=== PATIENT | female | born 1980 | race Caucasian/White ===

== ENCOUNTER 2016-08-06 17:15 | Emergency (ER) | payer BC ==
[2016-08-06 19:34] VITALS: BP 130/89
--- NOTE | 2016-08-06 19:43 | UC ---
UC General HPI - HPI Summary HPI Summary: complaint left rib cage pain that started approx 1 week ago was getting out of the shower and started having pain after she stood up from bending over since then having intermittent pain then for the last 4 days the pain has been constant- denies trauma can't sleep at night d/t pain hard to sit in a chair at work, worse with movement hurts to take a deep breath denies shortness of breath, dizziness, chest pain, diaphoresis nausea took some ibuprofen without relief hx of gastric bypass - History of Current Complaint Chief Complaint: UCGeneralIllness Stated Complaint: RIGHT RIB PAIN Time Seen by Provider: 08/06/16 19:37 Hx Obtained From: Patient - Allergy/Home Medications Allergies/Adverse Reactions: Allergies Allergy/AdvReac Type Severity Reaction Status Date / Time Bupropion [From Wellbutrin] Allergy Anxiety Verified 08/06/16 19:37 Nickel Allergy RASH, SKIN Verified 08/06/16 19:37 BLEEDS ibuprofen AdvReac Unknown d/t Uncoded 08/06/16 19:37 gastric bypass Home Medications: Home Medications Acetaminophen [Extra Strength Acetaminop] 1,000 mg PO ONCE 08/06/16 [History Confirmed 08/06/16] Ibuprofen TAB* [Advil TAB*] 200 mg PO ONCE 08/06/16 [History Confirmed 08/06/16] PMH/Surg Hx/FS Hx/Imm Hx Previously Healthy: Yes Endocrine History Of: Reports: Thyroid Disease - THYROIDECTOMY Psychological History Of: Reports: Depression - ON MEDS - Surgical History Surgical History: Yes Surgery Procedure, Year, and Place: 05/2010 / 08/2010 THYROIDECTOMY, [facility]. 2011 LAPAROSCOPIC CHOLECYSTECTOMY, [place]. 2013 LAPAROSCOPIC GASTRIC BYPASS, [facility]. 2014 DILATION AND CURETTAGE, [facility] [place] - Family History Known Family History: Negative: Cardiac Disease, Hypertension, Diabetes - Social History Occupation: Employed Full-time Lives: With Family Alcohol Use: Occasionally Substance Use Type: None Smoking Status (MU): Former Smoker Type: Cigarettes Amount Used/How Often: 1/2 PPD Length of Time of Smoking/Using Tobacco: 5 YEARS Have You Smoked in the Last Year: No When Did the Patient Quit Smoking/Using Tobacco: 2004 - Immunization History Most Recent Influenza Vaccination: [id number] Review of Systems Constitutional: Negative Skin: Negative Eyes: Negative ENT: Negative Respiratory: Negative Cardiovascular: Negative Gastrointestinal: Negative Genitourinary: Negative Motor: Negative Neurovascular: Negative Musculoskeletal: Other: - left chest wall pain Neurological: Negative Psychological: Negative All Other Systems Reviewed And Are Negative: Yes Physical Exam Triage Information Reviewed: Yes Appearance: No Pain Distress, Well-Nourished Vital Signs: Initial Vital Signs Temp 98.7 F 08/06/16 19:28 Pulse 82 08/06/16 19:28 Resp 16 08/06/16 19:28 BP 130/89 08/06/16 19:28 Pulse Ox 100 08/06/16 19:28 Vital Signs Reviewed: Yes Eyes: Positive: Conjunctiva Clear ENT: Positive: Pharynx normal, TMs normal. Negative: Nasal congestion, Tonsillar swelling, Tonsillar exudate Neck: Positive: No Lymphadenopathy Respiratory: Positive: Lungs clear, Normal breath sounds, No respiratory distress Cardiovascular: Positive: RRR, No Murmur, Pulses Normal Abdomen Description: Positive: Nontender, Soft Bowel Sounds: Positive: Present Musculoskeletal: Positive: Other: - left chest wall tenderness over 6th,7th 8th ribs abd where they meet, no bruising , edema or ecchymosis Neurological: Positive: Alert Psychological Exam: Normal Skin Exam: Normal Course/Dx - Course Course Of Treatment: exam completed. chest x-ray shows no rib fracture- lungs appear overinflated COPD,rective airway -pt asymptomatic - Differential Dx - Multi-Symptom Differential Diagnoses: Other - rib fracture,,costochondritis, muscle strain Provider Diagnoses: costochondritis, muscle strain Discharge - Discharge Plan Condition: Stable Disposition: HOME Prescriptions: Metaxalone TAB* [Skelaxin TAB*] 800 mg PO BEDTIME #5 tab Patient Education Materials: Costochondritis (ED), Muscle Strain (ED) Referrals: Helen John MD [Primary Care Provider] - Additional Instructions: Start skelaxin as directed. Do not drink alcohol or drive while taking skelaxin. Take acetaminophen for pain. Increase fluids and rest. Please review your discharge instructions. If your symptoms do not improve please call your primary care provider or return to urgent care.
--- NOTE | 2016-08-06 20:10 | RAD ---
HISTORY: Left chest wall pain COMPARISONS: None VIEWS: 2: Frontal dual-energy and lateral views of the chest. FINDINGS: CARDIOMEDIASTINAL SILHOUETTE: The cardiomediastinal silhouette is normal. GURVINDER: The gurvinder are normal. PLEURA: The costophrenic angles are sharp. No pleural abnormalities are noted. LUNG PARENCHYMA: Calcified granulomas are noted bilaterally. ABDOMEN: The upper abdomen is clear. There is no subphrenic gas. BONES AND SOFT TISSUES: No bone or soft tissue abnormalities are noted. OTHER: None. IMPRESSION: HYPERINFLATION WHICH CAN BE SEEN WITH COPD OR REACTIVE AIRWAY DISEASE. NO ACTIVE CARDIOPULMONARY DISEASE.
== END 2016-08-06 20:30 | disposition home or self-care (01) ==
LOC: UCCORT 17:15
DX: M94.0 Chondrocostal junction syndrome [Tietze] (principal); S29.011A Strain of muscle and tendon of front wall of thorax, initial encounter; X58.XXXA Exposure to other specified factors, initial encounter; Y93.9 Activity, unspecified; Y92.9 Unspecified place or not applicable; Z98.84 Bariatric surgery status; Z90.49 Acquired absence of other specified parts of digestive tract; Z88.6 Allergy status to analgesic agent; Z88.8 Allergy status to other drugs, medicaments and biological substances; Z87.891 Personal history of nicotine dependence
CPT/HCPCS: 71020; 99212; G0463

== ENCOUNTER 2019-03-29 15:25 | Emergency (ER) | payer BC, OTHER ==
--- OUTSIDE RECORDS SUMMARY | 2019-03-29 15:44 | XMS REPORT | Summary of Care ---
:1980 Author Organization [facility] Address [address] [facility] [place] [address] Care Team Providers Name Role Phone Helen John MD Primary Care Provider Reason for Visit Reason Comments Blood Pressure pt states high bp for a few months Encounter Details Date Type Department Care Team Description 02/21/2019 Office Visit [facility] Kerrie Gasca, Other specified hypothyroidism (Primary Dx); Practice [employer] Other depression; [address] [place] [address] [place] [address] [phone] Allergies Active Allergy Reactions Severity Noted Date Comments Bupropion Hcl Other 02/11/2012 Made pt feel weird. documented as of this encounter (statuses as of 02/21/2019) Medications Medication Sig Dispensed Refills Start Date End Date Status cyanocobalamin Take 500 mcg 0 Active (B-12) 500 MCG Oral by mouth Tab DAILY. Multiple Vitamin Take by 0 Active (MULTI-VITAMINS PO) mouth TWICE DAILY. Ferrous Sulfate Take 2 Tabs 0 Active (IRON) 325 (65 FE) by mouth. MG Oral Tab ALPRAZolam (XANAX) Take 1 Tab by 20 Tab 0 08/23/2017 Active 0.25 MG Oral mouth THREE TabIndications: TIMES DAILY Anxiety NEEDED for anxiety. Max Daily Amount: 0.75 mg. acyclovir (ZOVIRAX) Take 1 Tab by 15 Tab 1 09/06/2018 Active 400 MG Oral Tab mouth THREE TIMES DAILY NEEDED (cold sores). Start the first day of cold sore and continue for five days ergocalciferol Take 1 Cap by 4 Cap 5 09/14/2018 Active (DRISDOL, mouth EVERY 7 CALCIFEROL, VITAMIN DAYS. D) 66846 units Oral Cap venlafaxine Take 1 Cap by 90 Cap 1 02/21/2019 Active (EFFEXOR XR) 75 MG mouth DAILY. Oral CAPSULE SR 24 Part of 225 HRIndications: mg PO QD dose Other depression venlafaxine Take 1 Cap by 90 Cap 1 02/21/2019 Active (EFFEXOR XR) 150 MG mouth EVERY Oral CAPSULE SR 24 TWENTY-FOUR HRIndications: HOURS. Part Other depression of 225 mg PO QD dose levothyroxine Take 1 Tab by 30 Tab 2 02/21/2019 Active (SYNTHROID) 150 MCG mouth BEFORE Oral BREAKFAST. TabIndications: Other specified hypothyroidism venlafaxine Take 1 Cap by 90 Cap 1 09/21/2018 Discontinued (EFFEXOR XR) 150 MG mouth EVERY 9 (Reorder) Oral CAPSULE SR 24 TWENTY-FOUR HRIndications: HOURS. Part Other depression of 225 mg PO QD dose venlafaxine Take 1 Cap by 90 Cap 1 09/21/2018 Discontinued (EFFEXOR XR) 75 MG mouth DAILY. 9 (Reorder) Oral CAPSULE SR 24 Part of 225 HRIndications: mg PO QD dose Other depression levothyroxine Take 1 Tab by 30 Tab 2 12/01/2018 Discontinued (SYNTHROID) 150 MCG mouth BEFORE 9 (Reorder) Oral Tab BREAKFAST. documented as of this encounter (statuses as of 02/21/2019) Active Problems Problem Noted Date S/P gastric bypass 02/11/2015 BMI 45.0-49.9, adult 03/09/2013 Hyperlipidemia 10/13/2012 Vitamin D deficiency 10/13/2012 Depression 12/14/2011 Anxiety 09/08/2011 Hypothyroidism Overview: multinodular goiter, thyroidectomy documented as of this encounter (statuses as of 02/21/2019) Resolved Problems Problem Noted Date Resolved Date Symptomatic cholelithiasis 05/29/2011 09/08/2011 Cholelithiasis 05/06/2011 09/08/2011 documented as of this encounter (statuses as of 02/21/2019) Immunizations Name Administration Dates Next Due Influenza (IM) Preservative Free 04/14/2018, 03/25/2012 Influenza (IM) W/Pres 04/14/2017 TDAP Vaccine 12/04/2013 Toradol (60 mg) 12/21/2011 documented as of this encounter Social History Tobacco Use Types Packs/Day Years Used Date Former Smoker Smokeless Tobacco: Never Used Comments: quit in 2004 Alcohol Use Drinks/Week oz/Week Comments Yes Sex Assigned at Date Recorded Not on file Job Start Date Occupation Industry Not on file Not on file Not on file Travel History Travel Start Travel End No recent travel history available. documented as of this encounter Last Filed Vital Signs Vital Sign Reading Time Taken Comments Blood Pressure 130/84 02/21/2019 9:45 AM EDT Pulse 95 02/21/2019 9:45 AM EDT Temperature 37.4 02/21/2019 9:45 AM EDT C (99.4 F) Respiratory Rate - - Oxygen Saturation 99% 02/21/2019 9:45 AM EDT Inhaled Oxygen Concentration - - Weight 97.1 kg (214 lb) 02/21/2019 9:45 AM EDT Height 167.6 cm (5' 6") 02/21/2019 9:45 AM EDT Body Mass Index 34.54 02/21/2019 9:45 AM EDT documented in this encounter Patient Instructions Patient InstructionsKerrie Gasca FNP - 02/21/2019 9:40 AM EDTLabs today Follow up as needed documented in this encounter Progress Notes Kerrie Gasca FNP - 02/21/2019 9:40 AM EDT PATIENT: Marlee Moore : 1980 DATE OF SERVICE: 02/21/2019 CHIEF COMPLAINT: Chief Complaint Patient presents with Blood Pressure pt states high bp for a few months Subjective HISTORY OF PRESENT ILLNESS: Marlee Moore is a 38-y.o. female. HPI Here for follow up - needs labs and med refills/ Last labs in July - TSH &gt ;300, anemia on CBC.Pt states had been out of tyroid med for awhile prior to that. Feels well today Past Medical History: Diagnosis Date Cholelithiasis laparoscopic cholecystectomy 06/03/2011 Depression 12/14/2011 Hypothyroidism multinodular goiter, thyroidectomy Family History Problem Relation Age of Onset Hypertension Mother High Cholesterol Mother Heart Father PVC Stroke Unknown GF Heart Unknown GF Current Outpatient Medications Medication Sig acyclovir (ZOVIRAX) 400 MG Oral Tab Take 1 Tab by mouth THREE TIMES DAILY NEEDED (cold sores). Start the first day of cold sore and continue for five days ALPRAZolam (XANAX) 0.25 MG Oral Tab Take 1 Tab by mouth THREE TIMES DAILY NEEDED for anxiety. Max Daily Amount: 0.75 mg. cyanocobalamin (B-12) 500 MCG Oral Tab Take 500 mcg by mouth DAILY. ergocalciferol (DRISDOL, CALCIFEROL, VITAMIN D) 57213 units Oral Cap Take 1 Cap by mouth EVERY 7 DAYS. Ferrous Sulfate (IRON) 325 (65 FE) MG Oral Tab Take 2 Tabs by mouth. levothyroxine (SYNTHROID) 150 MCG Oral Tab Take 1 Tab by mouth BEFORE BREAKFAST. Multiple Vitamin (MULTI-VITAMINS PO) Take by mouth TWICE DAILY. venlafaxine (EFFEXOR XR) 150 MG Oral CAPSULE SR 24 HR Take 1 Cap by mouth EVERY TWENTY-FOUR HOURS. Part of 225 mg PO QD dose venlafaxine (EFFEXOR XR) 75 MG Oral CAPSULE SR 24 HR Take 1 Cap by mouth DAILY. Part of 225 mg PO QD dose No current facility-administered medications for this visit. Allergies Allergen Reactions Wellbutrin [Bupropion Hcl] Other Made pt feel weird. Social History Socioeconomic History Marital status: Spouse name: Not on file Number of children: Not on file Years of education: Not on file Highest education level: Not on file Occupational History Not on file Social Needs Financial resource strain: Not on file Food insecurity: Worry: Not on file Inability: Not on file Transportation needs: Medical: Not on file Non-medical: Not on file Tobacco Use Smoking status: Former Smoker Smokeless tobacco: Never Used Tobacco comment: quit in 2004 Substance and Sexual Activity Alcohol use: Yes Drug use: No Sexual activity: Not Currently Partners: Male Lifestyle Physical activity: Days per week: Not on file Minutes per session: Not on file Stress: Not on file Relationships Social connections: Talks on phone: Not on file Gets together: Not on file Attends latter day service: Not on file Active member of club or organization: Not on file Attends meetings of clubs or organizations: Not on file Relationship status: Not on file Intimate partner violence: Fear of current or ex partner: Not on file Emotionally abused: Not on file Physically abused: Not on file Forced sexual activity: Not on file Other Topics Concern Back Care Not Asked Bike Helmet Not Asked Blood Transfusions Not Asked Caffeine Concern Not Asked Exercise Yes Comment: ran the [employer] race october 2013 Hobby Hazards Not Asked International Travel Not Asked Service Not Asked Occupational Exposure Not Asked Seat Belt Not Asked Self-Exams Not Asked Sleep Concern Not Asked Special Diet Not Asked Stress Concern No Weight Concern Yes Social History Narrative 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 Musculoskeletal: Negative for myalgias. Psychiatric/Behavioral: Depression controlled on current medications Objective PHYSICAL EXAM: VITALS: BP 130/84 (BP Location: Left arm, Patient Position: Sitting) | Pulse 95 | Temp 99.4 F(37.4 C) | Ht 5' 6" (1.676 m) | Wt 214 lb (97.1 kg) | SpO2 99% | BMI 34.54 kg/m Body mass index is 34.54 kg/m. Physical Exam Constitutional: She is oriented to person, place, and time. Vital signs are normal. She appears well-developed and well-nourished. HENT: Head: Normocephalic and atraumatic. Mouth/Throat: Uvula is midline and oropharynx is clear and moist. Eyes: Pupils are equal, round, and reactive to light. EOM are normal. Neck: Normal range of motion. No thyromegaly present. Cardiovascular: Normal rate and regular rhythm. Pulmonary/Chest: Effort normal and breath sounds normal. Lymphadenopathy: She has no cervical adenopathy. Neurological: She is alert and oriented to person, place, and time. Skin: Skin is warm and dry. Capillary refill takes less than 2 seconds. No pallor. Psychiatric: She has a normal mood and affect. Doing well on current dose of Effexor Vitals reviewed. ASSESSMENT / IMPRESSION: ICD-9-CM ICD-10-CM 1. Other specified hypothyroidism 244.8 E03.8 levothyroxine (SYNTHROID) 150 MCG Oral Tab 2. Other depression 311 F32.89 venlafaxine (EFFEXOR XR) 75 MG Oral CAPSULE SR 24 HR venlafaxine (EFFEXOR XR) 150 MG Oral CAPSULE SR 24 HR 3. Elevated cholesterol 272.0 E78.00 LIPID PROFILE Plan Labs today Follow up as needed Author: ERASMO Spencer 02/21/2019 10:27 documented in this encounter Plan of Treatment Name Type Priority Associated Diagnoses Order Schedule LIPID PROFILE Lab Routine Elevated cholesterol Expected: 02/21/2019 ( Approximate), Expires: 08/20/2019 Health Maintenance Due Date Last Done Comments LIPID DISORDER SCREENING 10/10/2017 10/10/2012, 05/10/2012, 01/06/2012, Additional history exists PAP SMEAR 12/10/2018 12/11/2015, 10/13/2012, 08/11/2011, Additional history exists INFLUENZA VACCINE (#1) 2019 04/14/2018, 04/14/2017, 03/25/2012 DEPRESSION SCREENING 08/25/2019 08/25/2018 HPV IMMUNIZATION SERIES Aged Out No longer eligible based on patient's age to complete this topic MENINGOCOCCAL VACCINE IMM Aged Out No longer eligible based on patient's age to complete this topic PNEUMOCOCCAL 0-64 YRS Aged Out No longer eligible based on patient's age to complete this topic documented as of this encounter Goals Goal Patient Goal Associated Recent Patient-Stated? Author Type Problems Progress Depression Depression No brittany John (PHQ-9) Helen total score < 5 Note: This is an individualized treatment (depression) goal for Marlee Moore: Displayed above is your goal for a depression screening (PHQ-9) score that would indicate good control of your depression. Keep a regular sleep schedule Lifestyle No Helen John MD Note: This is an individualized lifestyle goal for Marlee Moore: Please maintain a regular sleep schedule. This may help with some symptoms of depression. Take all prescribed medications as Self-management No Helen John MD directed Note: This is an individualized self-management goal for Marlee Moore: Please take all prescribed medications as directed. 1. Do not skip doses. If you cannot afford your medications, talk with your doctor. 2. Use a pill reminder system such as a pill box if needed. Your pharmacist can help you with this. 3. Contact your Pharmacy 5 days before your medication runs out. If you cannot take your medications for any reasons, talk with your doctor. 4. Please bring all of your medication bottles and inhalers (or a list of all your medications/inhalers) with you to every visit. Potential barriers to meeting all of your care plan goals will continue to be addressed on an ongoing basis. documented as of this encounter Results Not on filedocumented in this encounter Visit Diagnoses Diagnosis Other specified hypothyroidism - Primary Other depression Elevated cholesterol Pure hypercholesterolemia documented in this encounter Insurance Payer Benefit Plan / Subscriber ID Effective Dates Phone Address Type Group [employer] x[employer]xxx 2017-Present [employer] (Home) [place], [place] [phone] (Work) documented as of this encounter
[2019-03-29 15:45] VITALS: BP 124/86
[2019-03-29] MEDS ORDERED: Tetan/Diph/Pertus SYR(Tdap)* 0.5 ML SYR(BOOSTRIX) use SYR contains LATEX IM ONE (15:57)
--- NOTE | 2019-03-29 17:20 | UC ---
Skin Complaint HPI - HPI Summary HPI Summary: LESS THAN 1 HOUR BELT LACER PATIENT WAS ADMINISTERING AN ALLERGY SHOT TO AN 9-YEAR-OLD PATIENT. WHEN SHE WITHDREW THE NEEDLE SHE ACCIDENTALLY PUNCTURED HER LEFT THIRD FINGER. PATIENT WORKS AT [employer]. LAST TETANUS 12/2008. - History of Current Complaint Chief Complaint: UCSkin Time Seen by Provider: 03/29/19 15:48 Stated Complaint: NEEDLE EXPOSURE Hx Obtained From: Patient Hx Last Menstrual Period: 4 weeks Onset/Duration: Sudden Onset, Lasting Minutes, Still Present Timing: Constant Onset Severity: Mild Current Severity: Mild Pain Intensity: 1 Pain Scale Used: 0-10 Numeric Location: Discrete - LEFT 3RD FINGER Aggravating Factor(s): Nothing Alleviating Factor(s): Nothing Associated Signs & Symptoms: Positive: Negative - Allergy/Home Medications Allergies/Adverse Reactions: Allergies Allergy/AdvReac Type Severity Reaction Status Date / Time bupropion [From Wellbutrin] Allergy Severe Anxiety Verified 03/29/19 15:47 nickel Allergy Severe RAsh, skin Verified 03/29/19 15:47 bleeds PMH/Surg Hx/FS Hx/Imm Hx Endocrine History: Hypothyroidism - Surgical History Surgical History: Yes Surgery Procedure, Year, and Place: 05/2010 / 08/2010 THYROIDECTOMY, [facility]. 2011 LAPAROSCOPIC CHOLE[place]STECTOMY, [place]. 2013 LAPAROSCOPIC GASTRIC BYPASS, [facility]. 2014 DILATION AND CURETTAGE, [facility] [place] - Family History Known Family History: Negative: Cardiac Disease, Hypertension, Diabetes - Social History Alcohol Use: Occasionally Substance Use Type: None Smoking Status (MU): Light Every Day Tobacco Smoker Type: Cigarettes Amount Used/How Often: 1/2 PPD Length of Time of Smoking/Using Tobacco: 5 YEARS Have You Smoked in the Last Year: No When Did the Patient Quit Smoking/Using Tobacco: 2004 - Immunization History Most Recent Influenza Vaccination: [id number] Review of Systems All Other Systems Reviewed And Are Negative: Yes Constitutional: Positive: Negative Skin: Positive: Other - PW LEFT 3RD FINGER Respiratory: Positive: Negative Cardiovascular: Positive: Negative Gastrointestinal: Positive: Negative Physical Exam Triage Information Reviewed: Yes Appearance: Well-Appearing, No Pain Distress, Well-Nourished Vital Signs: Initial Vital Signs Temp 97.8 F 03/29/19 15:39 Pulse 97 03/29/19 15:39 Resp 17 03/29/19 15:39 BP 124/86 03/29/19 15:39 Pulse Ox 100 03/29/19 15:39 Vital Signs Reviewed: Yes Eyes: Positive: Conjunctiva Clear ENT: Positive: Hearing grossly normal Neck: Positive: Supple Respiratory: Positive: No respiratory distress, No accessory muscle use Cardiovascular: Positive: Pulses Normal Abdomen Description: Positive: Soft Musculoskeletal: Positive: No Edema Neurological: Positive: Alert Psychological: Positive: Age Appropriate Behavior Skin: Positive: Other - PINPOINT PUNCTURE WOUND TIP OF LEFT 3RD FINGER. MINIMALLY TENDER. NO ERYTHEMA OR DRAINAGE.. Negative: Rashes Course/Dx - Course Course Of Treatment: PATIENT SUSTAINED A NEEDLESTICK TO HER DISTAL LEFT THIRD FINGER AFTER ADMINISTERING AN ALLERGY SHOT TO AN 9-YEAR-OLD. GIVEN LOW RISK SOURCE INDIVIDUAL, PATIENT OPTS TO DECLINE PEP WHICH I THINK IS REASONABLE. HIV, HEPATITIS B SURFACE ANTIBODY, HEPATITIS B SURFACE ANTIGEN AND HEPATITIS C ANTIBODY DRAWN TODAY. TDAP BOOSTED. PATIENT WILL FOLLOW-UP WITH OCCUPATIONAL MEDICINE. - Diagnoses Provider Diagnosis: Needle stick injury of finger of left hand Discharge ED - Sign-Out/Discharge Documenting (check all that apply): Patient Departure All imaging exams completed and their final reports reviewed: No Studies - Discharge Plan Condition: Stable Disposition: HOME Patient Education Materials: Needle Stick Injuries (ED) Referrals: Eric Moreno MD [Medical Doctor] - 1 Week Helen John MD [Primary Care Provider] - If Needed Additional Instructions: TDAP WAS BOOSTED TODAY. BLOOD DRAWN FOR HIV, HEPATITIS B SURFACE ANTIBODY, HEPATITIS B SURFACE ANTIGEN AND HEPATITIS C ANTIBODY. WE WILL CALL YOU WITH ANY ABNORMAL RESULTS. FOLLOW-UP WITH DR. MORENO WITH OCCUPATIONAL MEDICINE. YOUR NEEDLESTICK SITE LOOKS GOOD. SEEK FOLLOW-UP IF YOU DEVELOP SPREADING REDNESS OF THE SKIN, PURULENT DRAINAGE, FEVER, INCREASED PAIN OR ANY OTHER CONCERNING SYMPTOMS. - Billing Disposition and Condition Condition: STABLE Disposition: Home
[2019-03-29 20:09] LABS: Hepatitis B Surface Antigen Nonreactive (Nonreactive)
[2019-03-29 20:26] LABS: Hepatitis B Surface Ab Immune (Immune); Hepatitis C Antibody Negative (Negative)
[2019-03-29 20:27] LABS: HIV 4th Generation Nonreactive (Nonreactive)
--- NOTE | 2019-03-30 10:47 | UC ---
- Progress Note Progress Note: Hep B surface AG - nonreactive Hep B ab - immune Rupert C neg HIV 4th - non reactive no change please contact pt with result Course/Dx - Diagnoses Provider Diagnoses: Needle stick injury of finger of left hand Discharge ED - Sign-Out/Discharge Documenting (check all that apply): Post-Discharge Follow Up All imaging exams completed and their final reports reviewed: No Studies - Discharge Plan Condition: Stable Disposition: HOME Patient Education Materials: Needle Stick Injuries (ED) Referrals: Eric Moreno MD [Medical Doctor] - 1 Week Helen John MD [Primary Care Provider] - If Needed Additional Instructions: TDAP WAS BOOSTED TODAY. BLOOD DRAWN FOR HIV, HEPATITIS B SURFACE ANTIBODY, HEPATITIS B SURFACE ANTIGEN AND HEPATITIS C ANTIBODY. WE WILL CALL YOU WITH ANY ABNORMAL RESULTS. FOLLOW-UP WITH DR. MORENO WITH OCCUPATIONAL MEDICINE. YOUR NEEDLESTICK SITE LOOKS GOOD. SEEK FOLLOW-UP IF YOU DEVELOP SPREADING REDNESS OF THE SKIN, PURULENT DRAINAGE, FEVER, INCREASED PAIN OR ANY OTHER CONCERNING SYMPTOMS. - Billing Disposition and Condition Condition: STABLE Disposition: Home
== END 2019-03-29 16:51 | disposition home or self-care (01) ==
LOC: UCEAST 15:25
DX: S61.233A Puncture wound without foreign body of left middle finger without damage to nail, initial encounter (principal); Z23 Encounter for immunization; Z88.8 Allergy status to other drugs, medicaments and biological substances; Z91.09 Other allergy status, other than to drugs and biological substances; F17.210 Nicotine dependence, cigarettes, uncomplicated; J45.909 Unspecified asthma, uncomplicated; W46.1XXA Contact with contaminated hypodermic needle, initial encounter; Y92.9 Unspecified place or not applicable
CPT/HCPCS: 36415; 86706; 86803; 87340; 87389; 90715; 99211; G0463